=== PATIENT | female | born 1965 | race Caucasian/White ===

== ENCOUNTER → 2017-04-10 | Outpatient (CLI) | payer BC ==
[~2017-04-10] MED LIST: IRON; MOTRIN; NITR-58 PO; PHEN-538 PO
--- NOTE | 2017-04-11 16:26 | RADRPT ---
PROCEDURE: XR Knee 2 Views. CLINICAL INDICATION: Right knee pain TECHNIQUE: AP and lateral view of the right knee were obtained. The images reviewed on a PACS wor kstation. COMPARISON: None. FINDINGS: The osseous structures are intact. No destructive bony lesions are observed. Interosseous spaces a re normal. Soft tissues are unremarkable. IMPRESSION: Unremarkable right knee. If further characterization is needed CT or MRI could be helpful. RPTAT: AA .Chapin Guevara MD, Date Time Electronically viewed and signed by .Chapin Guevara MD, on 04/11/2017 16:26 .P/
--- NOTE | 2017-04-11 16:33 | RADRPT ---
PROCEDURE: Bilateral shoulders 3 views CLINICAL INDICATION: Shoulder pain TECHNIQUE: AP internal and external rotation and transscapular Y views of the bilateral shoulders were obtained COMPARISON: None available FINDINGS: Right: Osseous structures are intact. No destructive bony lesions are observed. Interosseous spaces appea r normal. Soft tissues are unremarkable. Left: Osseous structures are intact. No destructive bony lesions are observed. The acromioclavicular and glenohumeral joints are unremarkable. Small potential calcification is seen in the subacromial spa ce. Soft tissues are unremarkable. IMPRESSION: Unremarkable right shoulder. Small potential calcification in the subacromial space of the left shoulder. Finding could reflect a small free body in the joint versus tendinous calcification, possibly indicating calcific tendonit is. If further characterization is needed CT or MRI could be helpful. If further characterization is needed CT or MRI could be helpful. If there is high clinical suspicion for traumatic injury, further evaluation with CT should be consi dered. RPTAT: AA .Chapin Guevara MD, Date Time Electronically viewed and signed by .Chapin Guevara MD, MD on 04/11/2017 16:33 .P/
== END | disposition home or self-care (01) ==
LOC: RAD 13:35
PROVIDERS: ATTEND Internal Medicine
DX: M25.561 Pain in right knee (principal); M25.512 Pain in left shoulder; M25.511 Pain in right shoulder
CPT/HCPCS: 73560

== ENCOUNTER 2017-04-19 19:37 | Emergency (ER) | payer BC ==
[~2017-04-19] VITALS: Wt 65.9 kg
[2017-04-19] MEDS ORDERED: SOD CHLORIDE 0.9% 1,000 ML IV STA (19:56)
[2017-04-19] MEDS ORDERED: ACETAMINOPHEN 500 MG TAB PO STA (19:56)
[2017-04-19 20:16] LABS: ADD SCAN DIFF NO
[2017-04-19 20:19] LABS: BASOPHILS % 0.1 % (0.0-2.0); EOSINOPHILS % 0.1 % (0.0-7.0); HEMATOCRIT 39.4 % (37.0-47.0); HEMOGLOBIN 13.1 g/dl (12.0-16.0); LYMPHOCYTES # 0.9 10^3/ul (0.8-2.9); LYMPHOCYTES % 11.7 % (15.0-51.0); MEAN CORPUSCULAR HEMOGLOBIN 30.7 pg (29.0-33.0); MEAN CORPUSCULAR HGB CONC 33.2 g/dl (32.0-37.0); MEAN CORPUSCULAR VOLUME 92.3 fl (82.0-101.0); MEAN PLATELET VOLUME 8.8 fl (7.4-10.4); MONOCYTE # 0.4 10^3/ul (0.3-0.9); NEUTROPHIL # 6.6 10^3/ul (1.6-7.5); NEUTROPHILS % 82.7 % (39.0-77.0); PLATELET COUNT 249 10^3/UL (140-415); RED BLOOD COUNT 4.27 10^6/ul (4.20-5.40); RED CELL DISTRIBUTION WIDTH 12.8 % (11.5-14.5)
[2017-04-19 20:25] LABS: ADD UMIC YES; UR ASCORBIC ACID NEGATIVE (NEGATIVE); UR BILIRUBIN (Dip) NEGATIVE (NEGATIVE); UR BLOOD (Dip) 2+ mg/dL (NEGATIVE); UR CLARITY CLEAR (CLEAR); UR COLOR STRAW (YELLOW); UR GLUCOSE (Dip) NEGATIVE (NEGATIVE); UR KETONES (Dip) NEGATIVE (NEGATIVE); UR LEUKOCYTE ESTERASE (Dip) TRACE Leu/ul (NEGATIVE); UR NITRITE (Dip) NEGATIVE (NEGATIVE); UR RBC 3 /HPF (0-5); UR SPECIFIC GRAVITY (Dip) 1.009 (1.003-1.030); UR SQUAMOUS EPITHELIAL CELL FEW /HPF (FEW); UR TOTAL PROTEIN (Dip) NEGATIVE (NEGATIVE); UR UROBILINOGEN (Dip) NEGATIVE (NEGATIVE)
[2017-04-19 20:41] LABS: ALBUMIN 5.1 g/dl (3.3-4.9); ALBUMIN/GLOBULIN RATIO 1.59; BILIRUBIN,INDIRECT 0.6 mg/dl (0-1.1); BILIRUBIN,TOTAL 0.6 mg/dl (0.2-1.3); CALCIUM 9.6 mg/dl (8.4-10.2); CREATININE 0.72 mg/dl (0.44-1.00); TOTAL PROTEIN 8.3 g/dl (6.1-8.1)
[2017-04-19] MEDS ORDERED: CIPR500T4 PO (20:59)
--- NOTE | 2017-04-19 20:59 | ERD ---
ER Documentation Chief Complaint Date/Time DATE: 04/19/17 TIME: 20:57 Chief Complaint lower back pain radiating to both legs x 1 day HPI This is a 52-year-old female who presents to the emergency room for evaluation of back pain, body aches, and painful urination for the past 3 days. This patient also states that she is had a fever and has been taking ibuprofen. She came to the ER today for evaluation. The patient localizes back pain to the lower portion of the back and describes it as an achy pain sometimes worse with urination. The patient denies any blood in her urine and denies any vaginal discharge. She did come to the emergency room for evaluation. Patient denies any numbness or tingling in her lower extremity ROS All systems reviewed and are negative except as per history of present illness. Medications Home Meds Active Scripts Phenazopyridine Hcl* (Pyridium*) 200 Mg Tab, 200 MG PO TID Y for URINARY PAIN, # 6 TAB Prov:CHRISTIANO AGUILAR NP 08/23/16 Nitrofurantoin Monohyd Macrocr* (Macrobid*) 100 Mg Capsr, 100 MG PO BID for 7 Days, CAP Prov:CHRISTIANO AGUILAR NP 08/23/16 Reported Medications [Iron] No Conflict Check 03/31/13 [Motrin] No Conflict Check 03/31/13 Allergies Allergies: Coded Allergies: No Known Drug Allergies (Verified Allergy, Mild, 04/19/17) PMhx/Soc History of Surgery: No Anesthesia Reaction: No Hx Neurological Disorder: No Hx Respiratory Disorders: No Hx Cardiac Disorders: No Hx Psychiatric Problems: No Hx Miscellaneous Medical Probl: No Hx Alcohol Use: No Hx Substance Use: No Hx Tobacco Use: No Smoking Status: Never smoker Physical Exam Vitals Vital Signs Date Time Temp Pulse Resp B/P Pulse Ox O2 Delivery O2 Flow Rate FiO2 04/19/17 19:44 101.1 105 20 144/66 97 Physical Exam INITIAL VITAL SIGNS: Reviewed by me GENERAL: The patient is well developed and appropriate for usual state of health in no apparent distress HEENT: Pupils equal, round, and reactive to light. EOMI. There is no scleral icterus. NECK: C-spine is soft and supple, there is no meningismus. There is no cervical lymphadenopathy. LUNGS: Clear to auscultation bilaterally. There are no rales, wheezes or rhonchi. HEART: Regular rate and rhythm, no murmurs, clicks, rubs or gallops. ABDOMEN: Soft, non-tender, non-distended. There are bowel sounds in all four quadrants. No rebound or guarding. EXTREMITIES: There is no peripheral cyanosis or edema. No focal swelling or erythema. NEUROLOGICAL: The patient moves all four extremities with 5/5 strength. Cranial nerves II - XII are intact. Normal gait. Alert and oriented SKIN: There is no apparent rash or petechiae. HEME/LYMPHATIC: There is no evidence of excessive bruising or lymphedema. PSYCHIATRIC: The patient does not appear anxious or depressed. Result Diagram: 04/19/17200404/19/172004 Results 24 hrs Laboratory Tests Test 04/19/17 20:05 White Blood Count 8.010^3/ul Red Blood Count 4.2710^6/ul Hemoglobin 13.1g/dl Hematocrit 39.4% Mean Corpuscular Volume 92.3fl Mean Corpuscular Hemoglobin 30.7pg Mean Corpuscular Hemoglobin Concent 33.2g/dl Red Cell Distribution Width 12.8% Platelet Count 26729^3/UL Mean Platelet Volume 8.8fl Neutrophils % 82.7% Lymphocytes % 11.7% Monocytes % 5.0% Eosinophils % 0.1% Basophils % 0.1% Nucleated Red Blood Cells % 0.0/100WBC Neutrophils # 6.610^3/ul Lymphocytes # 0.910^3/ul Monocytes # 0.410^3/ul Eosinophils # 0.010^3/ul Basophils # 0.010^3/ul Nucleated Red Blood Cells # 0.010^3/ul Urine Color STRAW Urine Clarity CLEAR Urine pH 6.0 Urine Specific [place] 1.009 Urine Ketones NEGATIVEmg/dL Urine Nitrite NEGATIVEmg/dL Urine Bilirubin NEGATIVEmg/dL Urine Urobilinogen NEGATIVEmg/dL Urine Leukocyte Esterase TRACELeu/ul Urine Microscopic RBC 3/HPF Urine Microscopic WBC 1/HPF Urine Squamous Epithelial Cells FEW/HPF Urine Hemoglobin 2+mg/dL Urine Glucose NEGATIVEmg/dL Urine Total Protein NEGATIVEmg/dl Sodium Level 140mmol/L Potassium Level 4.0mmol/L Chloride Level 100mmol/L Carbon Dioxide Level 29mmol/L Anion Gap 15 Blood Urea Nitrogen 15mg/dl Creatinine 0.72mg/dl Glucose Level 98mg/dl Calcium Level 9.6mg/dl Total Bilirubin 0.6mg/dl Direct Bilirubin 0.00mg/dl Indirect Bilirubin 0.6mg/dl Aspartate Amino Transf (AST/SGOT) 28IU/L Alanine Aminotransferase (ALT/SGPT) 32IU/L Alkaline Phosphatase 58IU/L Creatine Kinase 100IU/L Total Protein 8.3g/dl Albumin 5.1g/dl Globulin 3.20g/dl Albumin/Globulin Ratio 1.59 Lipase 92U/L Current Medications Medications (Trade) Dose Ordered Sig/Melina Route PRN Reason Start Time Stop Time Status Last Admin Dose Admin Sodium Chloride (NS) 1,000 ml @ 1,000 mls/hr Q1H STAT IV 04/19/17 19:56 04/19/17 20:55 DC 04/19/17 20:08 Acetaminophen 1000 mg 1,000 mg ONCE STAT PO 04/19/17 19:56 04/19/17 19:57 DC 04/19/17 20:08 Ceftriaxone Sodium (Rocephin) 50 ml @ 100 mls/hr ONCE ONCE IVPB 04/19/17 21:00 04/19/17 21:29 UNV Procedures/MDM This is a 32-year-old female presents to the emergency room for evaluation of lower back pain, painful urination and a fever. When I evaluated her I could not elicit any CVAT. Lab work was obtained which does not show a leukocytosis. Urinalysis does reveal slight leukocyte esterase. The patient did have urine culture obtained was given 1 g Rocephin. This patient's clinical picture is consistent with pyelonephritis and although her urinalysis does not reveal white blood cells I did advise the patient that we obtain a urine culture and sometimes urine culture can grow bacteria. The patient is nontoxic appearing at this time. She received 1 L of IV fluids and pulmonary evaluation states she is feeling slightly better. This patient will be discharged home at this time with a prescription for ciprofloxacin to take over the course of the next 2 weeks for pyelonephritis. This patient has no signs of cauda equina, no urinary retention or urinary incontinence. Departure Diagnosis: Primary Impression: Pyelonephritis Condition: CAMELIA Pisano DO Apr 19, 2017 20:59
[2017-04-19] MEDS ORDERED: CEFTRIAXONE 1 GM/50 ML (PMX) 50 ML IVPB ONE (21:00)
== END 2017-04-19 21:55 | disposition home or self-care (01) ==
LOC: FTE 19:37
DX: N12 Tubulo-interstitial nephritis, not specified as acute or chronic (principal)
CPT/HCPCS: 36415; 80053; 81001; 82550; 83690; 85025; 87086; 87400; 96374; 99284; J0696; J7030

== ENCOUNTER → 2017-04-27 | Outpatient (CLI) | payer BC ==
[~2017-04-27] MED LIST changes: +CIPR500T4 PO
--- NOTE | 2017-04-27 13:06 | RADRPT ---
PROCEDURE: CT sinuses CLINICAL INDICATION: CHRONIC SINUSITIS TECHNIQUE: Continuous axial CT images were obtained through the paranasal sinuses at 0.63 mm inter vals. Coronal reconstructions were performed. No contrast was administered. The calculated radiati on dose measures 262 mGy centimeters. The CTDI measures 18 mGy COMPARISON: None FINDINGS: The bilateral frontal sinuses are clear. There is mild mucosal thickening in the bilateral ethmoid air cells. The bilateral maxillary sinuses are clear. The bilateral sphenoid sinuses are normally aerated. The frontal drainage pathways are patent. The bilateral osteomeatal complexes demonstrate patent eth moid infundibula. The osseous structures demonstrate no evidence of reactive sclerosis, expansion, erosion or fracture . The nasal cavity and visualized nasopharynx are unremarkable. The nasal septum is near midline. The re are no masses within the nasal cavity. IMPRESSION: 1. Minimal mucosal thickening in the ethmoid air cells. Otherwise normal patency of the paranasal sinuses. 2. Patent sinus drainage pathways. 3. No air-fluid levels to suggest acute sinusitis involvement. RPTAT: DD .John Welch MD, MD Date Time Electronically viewed and signed by .John Welch MD, on 04/27/2017 13:06 .T/
== END | disposition home or self-care (01) ==
LOC: C/S 11:21
PROVIDERS: ATTEND Internal Medicine
DX: J32.9 Chronic sinusitis, unspecified (principal)
CPT/HCPCS: 70486

== ENCOUNTER → 2017-05-03 | Outpatient (CLI) | payer BC | END | disposition home or self-care (01) | LOC: LAB 11:20 | PROVIDERS: ATTEND Internal Medicine | DX: N39.0 Urinary tract infection, site not specified (principal) | CPT/HCPCS: 87086 ==

== ENCOUNTER → 2017-07-16 | Outpatient (CLI) | payer BC ==
[2017-07-16 13:13] LABS: BASOPHILS % 0.3 % (0.0-2.0); EOSINOPHILS # 0.1 10^3/ul (0.0-0.5); EOSINOPHILS % 0.7 % (0.0-7.0); HEMATOCRIT 40.2 % (37.0-47.0); HEMOGLOBIN 13.5 g/dl (12.0-16.0); LYMPHOCYTES # 2.4 10^3/ul (0.8-2.9); LYMPHOCYTES % 33.7 % (15.0-51.0); MEAN CORPUSCULAR HGB CONC 33.6 g/dl (32.0-37.0); MEAN CORPUSCULAR VOLUME 92.4 fl (82.0-101.0); MEAN PLATELET VOLUME 8.9 fl (7.4-10.4); MONOCYTE # 0.5 10^3/ul (0.3-0.9); MONOCYTES % 7.5 % (0.0-11.0); NEUTROPHILS % 57.5 % (39.0-77.0); PLATELET COUNT 249 10^3/UL (140-415); RED BLOOD COUNT 4.35 10^6/ul (4.20-5.40); RED CELL DISTRIBUTION WIDTH 12.5 % (11.5-14.5)
[2017-07-16 13:16] LABS: ADD UMIC YES; UR ASCORBIC ACID NEGATIVE (NEGATIVE); UR BILIRUBIN (Dip) NEGATIVE (NEGATIVE); UR BLOOD (Dip) 1+ mg/dL (NEGATIVE); UR CLARITY CLEAR (CLEAR); UR COLOR STRAW (YELLOW); UR GLUCOSE (Dip) NEGATIVE (NEGATIVE); UR KETONES (Dip) NEGATIVE (NEGATIVE); UR LEUKOCYTE ESTERASE (Dip) NEGATIVE Leu/ul (NEGATIVE); UR NITRITE (Dip) NEGATIVE (NEGATIVE); UR RBC 2 /HPF (0-5); UR SPECIFIC GRAVITY (Dip) 1.011 (1.003-1.030); UR TOTAL PROTEIN (Dip) NEGATIVE (NEGATIVE); UR UROBILINOGEN (Dip) NEGATIVE (NEGATIVE)
[2017-07-16 13:34] LABS: ALBUMIN 4.3 g/dl (3.3-4.9); ALBUMIN/GLOBULIN RATIO 1.26; BILIRUBIN,INDIRECT 0.6 mg/dl (0-1.1); BILIRUBIN,TOTAL 0.6 mg/dl (0.2-1.3); CALCIUM 9.5 mg/dl (8.4-10.2); CHOL/HDL RATIO 3.1 RATIO; CREATININE 0.64 mg/dl (0.44-1.00); POTASSIUM 4.2 mmol/L (3.5-5.1); TOTAL PROTEIN 7.7 g/dl (6.1-8.1)
== END | disposition home or self-care (01) ==
LOC: LAB 12:38
PROVIDERS: ATTEND Internal Medicine
DX: N39.0 Urinary tract infection, site not specified (principal); E78.5 Hyperlipidemia, unspecified; R73.03 Prediabetes
CPT/HCPCS: 80053; 80061; 81001; 83036; 85025

== ENCOUNTER → 2018-06-10 | Outpatient (CLI) | END | disposition home or self-care (01) ==

== ENCOUNTER → 2018-06-20 | Outpatient (CLI) | END | disposition home or self-care (01) ==

== ENCOUNTER → 2018-07-19 | Outpatient (CLI) | END | disposition home or self-care (01) ==

== ENCOUNTER → 2018-08-19 | Outpatient (CLI) | END | disposition home or self-care (01) ==

== ENCOUNTER → 2018-08-27 | Outpatient (CLI) | END | disposition home or self-care (01) ==

== ENCOUNTER → 2018-11-18 | Outpatient (CLI) | payer BC | END | disposition home or self-care (01) | LOC: RAD 14:50 | PROVIDERS: ATTEND Podiatrist Foot & Ankle Surgery | DX: R52 Pain, unspecified (principal); R60.9 Edema, unspecified | CPT/HCPCS: 73630 ==

== ENCOUNTER 2019-03-09 17:50 | Emergency (ER) | payer BC ==
[~2019-03-09] VITALS: Ht 167.6 cm; Wt 68.3 kg
[2019-03-09 17:56] VITALS: BP 167/72; PULSE 70; RESP 18; Ht 167.6 cm; Wt 68.3 kg
[2019-03-09] MEDS ORDERED: ACETAMINOPHEN 325 MG TAB PO ONE (18:30)
--- NOTE | 2019-03-09 18:39 | ERD ---
ER Documentation Chief Complaint Chief Complaint right lower leg pain no redness or swelling noted HPI 54-year-old female with no sniffing past medical history presenting to the emergency department complaining of right calf pain constantly for the past 3 weeks. She also reports some right-sided low back pain with radiation down her right leg and some right knee pain. Pain is rated 2/10 in severity at rest. She took naproxen at home with some relief. She denies any falls, trauma, fevers, chills, loss of bowel or bladder function, or other symptoms or injuries at this time. ROS All systems reviewed and are negative except as per history of present illness. Medications Home Meds Active Scripts Cyclobenzaprine Hcl* (Cyclobenzaprine Hcl*) 10 Mg Tablet, 10 MG PO TID, #15 TAB Prov:JESS DUNN PA-C 03/09/19 Naproxen* (Naprosyn*) 500 Mg Tablet, 500 MG PO BID PRN for PAIN AND/OR INFLAMMATION, #30 TAB Prov:JESS DUNN PA-C 03/09/19 Ciprofloxacin Hcl* (Ciprofloxacin Hcl*) 500 Mg Tablet, 500 MG PO BID for 14 Days, TAB Prov:CAMELIA ROCKWELL DO 04/19/17 Phenazopyridine Hcl* (Pyridium*) 200 Mg Tab, 200 MG PO TID PRN for URINARY PAIN, #6 TAB Prov:CHRISTIANO AGUILAR NP 08/23/16 Nitrofurantoin Monohyd Macrocr* (Macrobid*) 100 Mg Capsr, 100 MG PO BID for 7 Days, CAP Prov:CHRISTIANO AGUILAR NP 08/23/16 Reported Medications [Iron] No Conflict Check 03/31/13 [Motrin] No Conflict Check 03/31/13 Allergies Allergies: Coded Allergies: No Known Drug Allergies (Verified Allergy, Mild, 04/19/17) PMhx/Soc Medical and Surgical Hx: pt denies Medical Hx History of Surgery: No Anesthesia Reaction: No Hx Neurological Disorder: No Hx Respiratory Disorders: No Hx Cardiac Disorders: No Hx Psychiatric Problems: No Hx Miscellaneous Medical Probl: No Hx Alcohol Use: No Hx Substance Use: No Hx Tobacco Use: No FmHx Family History: No diabetes Physical Exam Vitals Vital Signs Date Temp Pulse Resp B/P (MAP) Pulse Ox O2 O2 Flow FiO2 Time Delivery Rate 03/09/19 98.5 70 18 167/72 98 17:56 (103) Physical Exam Const: No acute distress Head: Atraumatic Eyes: Normal Conjunctiva ENT: Normal External Ears, Nose and Mouth. Neck: Full range of motion. No meningismus. Resp: Clear to auscultation bilaterally Cardio: Regular rate and rhythm, no murmurs Skin: No petechiae or rashes Back: No midline or flank tenderness. Tenderness palpation of the paraspinal muscles of the lumbar spine on the right. Positive straight leg raise on the right. Ext: No cyanosis, or edema. Subjective tenderness palpation of the right an terior knee. Full range of motion. Neur: Awake and alert Psych: Normal Mood and Affect Results 24 hrs Current Medications Medications Dose Sig/Melina Start Time Status Last (Trade) Ordered Route PRN Stop Time Admin Dose Reason Admin 650 mg ONCE ONCE 03/09/19 DC 03/09/19 Acetaminophen PO 18:30 18:53 (Tylenol 03/09/19 18:31 Tab) [place] [address] Radiology Main Line: [phone] DIAGNOSTIC IMAGING REPORT Patient: DONTA NUÑEZ : 1965 Age: 54 Sex: F MR #: [id number] DOS: 03/09/19 0000 Ordering MD: JESS DUNN PA-C Location: [facility] Room/Bed: PROCEDURE: US Lower extremity Venous. CLINICAL INDICATION: Right leg edema TECHNIQUE: Multiple sonographic images of the right lower extremity deep venous system was obtained utilizing grayscale, color-flow, compressive sonography and doppler imaging with augmentation. The images were reviewed on a PACS workstation. COMPARISON: None. FINDINGS: There is normal compressibility and flow within the right common femoral, femoral, posterior tibial, peroneal and popliteal veins. RPTAT: AA IMPRESSION: No sonographic evidence for deep venous thrombosis. .Washington Houston MD, MD Date Time Electronically viewed and signed by .Washington Houston MD, MD on 03/09/2019 19:12 .S/ CC: JESS DUNN PA-C [phone] [place] [address] Radiology Main Line: [phone] DIAGNOSTIC IMAGING REPORT Patient: DONTA NUÑEZ : 1965 Age: 54 Sex: F MR #: [id number] DOS: 03/09/19 0000 Ordering MD: JESS DUNN PA-C Location: [facility] Room/Bed: PROCEDURE: Right knee x-ray CLINICAL INDICATION: Knee pain TECHNIQUE: AP, lateral and tunnel views of the knee were obtained. COMPARISON: CR KNEE 04/10/2017 FINDINGS: There is normal mineralization. No acute fracture or dislocation is seen. There is joint space narrowing and associated osteophytes. This is more pronounced in the medial compartment. There is no significant soft tissue swelling. RPTAT: AA IMPRESSION: Mild to moderate degenerative changes of the right knee, more pronounced in the medial compartment. .Washington Houston MD, MD Date Time Electronically viewed and signed by .Washington Houston MD, MD on 03/09/2019 19:01 .S/ CC: JESS DUNN PA-C [phone] Procedures/MDM 54-year-old female presenting to the emergency department complaining of right- sided low back pain with radiation down her right leg. She also reports right calf pain and right knee pain. Ultrasound of the left lower extremity showed no evidence of DVT. X-ray of the right knee was negative for any acute ab normalities. Full reports interpreted by the radiologist may be viewed above. Patient's musculoskeletal symptoms have stabilized while they have been evaluated in the department and are appropriate for outpatient work up. No evidence of cauda equina, cord compression, infiltrative, or infectious etiology. Patient's extremity symptoms have stabilized while they have been evaluated in the department and are appropriate for outpatient follow up. No evidence of compartment syndrome, neurologic injury, vascular injury, open joint, open fracture, tendon laceration, or foreign body. No evidence of life-threatening pathology at time of discharge. Pt/family in agreement with discharge plan/diagnosis. Pt/family advised to return immediately with any new or worsening symptoms. Follow-up with primary care physician within the next 1-2 days. Patient's blood pressure was elevated (>120/80) but appears stable without evidence of hypertension emergency or urgency. The patient is to follow-up and pursue outpatient monitoring and therapy with their primary care physician within 1 week and return immediately if they have any new, worsening, or concerning symptoms. Disclaimer: Inadvertent spelling and grammatical errors are likely due to EHR/dictation software use and do not reflect on the overall quality of patient care. Also, please note that the electronic time recorded on this note does not necessarily reflect the actual time of the patient encounter. Departure Diagnosis: Primary Impression: Low back pain with sciatica Chronicity: acute Back pain laterality: right Sciatica laterality: sciatica of right side Qualified Codes: M54.41 - Lumbago with sciatica, right side Additional Impression: Pain of right leg Condition: JESS Peterson PA-C March 09, 2019 18:39
[2019-03-09] MEDS ORDERED: NAPR-985 PO (19:18)
[2019-03-09] MEDS ORDERED: CYCL10TA7 PO (19:22)
== END 2019-03-09 19:39 | disposition home or self-care (01) ==
LOC: FTE 17:50
DX: M54.41 Lumbago with sciatica, right side (principal); M79.604 Pain in right leg
CPT/HCPCS: 73562; 93971

== ENCOUNTER → 2019-03-18 | Outpatient (CLI) | payer BC ==
[~2019-03-18] MED LIST changes: +CYCL10TA7 PO; +NAPR-985 PO
== END | disposition home or self-care (01) ==
LOC: LAB 10:13
PROVIDERS: ATTEND Internal Medicine
DX: E78.5 Hyperlipidemia, unspecified (principal); R73.03 Prediabetes
CPT/HCPCS: 80053; 80061; 83036; 85025; 85651

== ENCOUNTER 2019-03-30 05:50 | Emergency (ER) | payer BC ==
[~2019-03-30] VITALS: Ht 167.6 cm; Wt 68.9 kg
[2019-03-30 06:04] VITALS: Ht 167.6 cm; Wt 68.9 kg
[2019-03-30] MEDS ORDERED: IBUP800T48 PO (06:36)
--- NOTE | 2019-03-30 07:29 | ERD ---
ER Documentation Chief Complaint Chief Complaint right knee pain x 1 week. denies trauma HPI 54-year-old pleasant female presents to the ED complaining of right knee pain x1 week. 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 She denies any direct trauma or injury. She states her primary care provider wrote her prescription for meloxicam which has not been improving her pain. She states ibuprofen has been helping but she is running out of this. She states pain is worse in the mornings, especially when walking or ambulating. She has been resting her knee when not working. Of note, patient was seen here on March 09, 2019 for similar knee pain. X-ray at that time showed osteoarthritis of the right knee. ROS All systems reviewed and are negative except as per history of present illness. Medications Home Meds Active Scripts Ibuprofen* (Motrin*) 800 Mg Tab, 800 MG PO Q6H PRN for PAIN AND OR ELEVATED TEMP, #30 TAB Prov:KAUR BARRY PA-C 03/30/19 Cyclobenzaprine Hcl* (Cyclobenzaprine Hcl*) 10 Mg Tablet, 10 MG PO TID, #15 TAB Prov:JESS DUNN PA-C 03/09/19 Naproxen* (Naprosyn*) 500 Mg Tablet, 500 MG PO BID PRN for PAIN AND/OR INFLAMMATION, #30 TAB Prov:JESS DUNN PA-C 03/09/19 Ciprofloxacin Hcl* (Ciprofloxacin Hcl*) 500 Mg Tablet, 500 MG PO BID for 14 Days, TAB Prov:CAMELIA ROCKWELL DO 04/19/17 Phenazopyridine Hcl* (Pyridium*) 200 Mg Tab, 200 MG PO TID PRN for URINARY PAIN, #6 TAB Prov:CHRISTIANO AGUILAR NP 08/23/16 Nitrofurantoin Monohyd Macrocr* (Macrobid*) 100 Mg Capsr, 100 MG PO BID for 7 Days, CAP Prov:CHRISTIANO AGUILAR NP 08/23/16 Reported Medications [Iron] No Conflict Check 03/31/13 [Motrin] No Conflict Check 03/31/13 Allergies Allergies: Coded Allergies: No Known Drug Allergies (Verified Allergy, Mild, 04/19/17) PMhx/Soc Medical and Surgical Hx: pt denies Medical Hx, pt denies Surgical Hx History of Surgery: No Anesthesia Reaction: No Hx Neurological Disorder: No Hx Respiratory Disorders: No Hx Cardiac Disorders: No Hx Psychiatric Problems: No Hx Miscellaneous Medical Probl: No Hx Alcohol Use: No Hx Substance Use: No Hx Tobacco Use: No Physical Exam Vitals Vital Signs Date Temp Pulse Resp B/P (MAP) Pulse Ox O2 O2 Flow FiO2 Time Delivery Rate 03/30/19 98.6 92 18 141/74 99 06:04 (96) Physical Exam Const: No acute distress Head: Atraumatic Eyes: Normal Conjunctiva ENT: Normal External Ears, Nose and Mouth. Neck: Full range of motion. No meningismus. Skin: No petechiae or rashes Back: No midline or flank tenderness Ext: + Moderate tenderness to palpation along medial joint line of the right knee, no effusion, no warmth, slight pain with flexion of the knee. Distal pulses intact. Left lower extremity normal. Neur: Awake and alert Psych: Normal Mood and Affect Procedures/MDM PROCEDURES: Type of Splint: knee immobilizer + crutches Splint Assessment: Neurovascularly intact post splint placement with good fit. MEDICAL DECISION MAKIN-year-old female presents with atraumatic right knee pain. She had an x-ray of the right knee done here about 3 weeks ago revealing osteoarthritis of the right knee. I believe today's symptoms are related to her osteoarthritis. She has no evidence of fracture, septic arthritis, osteomyelitis, or any other emergent condition, patient was discharged home with a knee immobilizer and crutches for comfort. Given Rx ibuprofen and told to follow-up with her primary care provider/orthopedist. Strict return precautions were discussed. PRESCRIPTIONS: Ibuprofen SPECIALIST FOLLOW UP RECOMMENDED: Orthopedist Patient has been advised to follow up with primary care in 1-2 days. Departure Diagnosis: Primary Impression: Pain of right leg Additional Impression: Osteoarthritis Osteoarthritis location: knee Osteoarthritis type: unspecified Laterality: right Qualified Codes: M17.11 - Unilateral primary osteoarthritis, right knee Condition: Stable Patient Instructions: Osteoarthritis: Common Sites, Osteoarthritis: Exercise, Osteoarthritis: Managing Pain Additional Instructions: Please follow-up with your primary care provider for referral to an orthopedist as you may need physical therapy for your ongoing pain. In the meantime, he can continue take ibuprofen, rest, ice, keep your leg elevated, and use the splint and crutches to keep your knee straight. Return here for any new or worsening symptoms. KAUR BARRY PA-C Mar 30, 2019 07:28
== END 2019-03-30 06:50 | disposition home or self-care (01) ==
LOC: FTE 05:50
DX: M17.11 Unilateral primary osteoarthritis, right knee (principal)

== ENCOUNTER → 2019-08-25 | Outpatient (CLI) | payer BC ==
[~2019-08-25] MED LIST changes: +IBUP800T48 PO
== END | disposition home or self-care (01) ==
LOC: LAB 10:41
PROVIDERS: ATTEND Obstetrics & Gynecology
DX: N39.0 Urinary tract infection, site not specified (principal)
CPT/HCPCS: 87086